=== PATIENT | female | born 1985 | race African-American/Black ===

== ENCOUNTER → 2025-08-04 16:34 | Outpatient (CLI) | payer OTHER, SELFPAY ==
[2025-08-04 17:27] LABS: Appearance Urine UA CLEAR; Bilirubin Urine UA NEGATIVE (NEGATIVE); Color Urine UA YELLOW; Glucose Urine UA NEGATIVE (Negative); Ketones Urine UA TRACE (NEGATIVE); Leukocyte Esterase Urine UA NEGATIVE (NEGATIVE); Nitrite Urine UA NEGATIVE (Negative); Occult Blood Urine UA 2+ (Negative); Protein Urine UA NEGATIVE (Negative); Specific Gravity Urine UA 1.025 (1.000-1.035); Urobilinogen Urine UA 0.2 E.U./dL (0.2)
[2025-08-04 17:28] LABS: pH Urine UA 6.0 (4.5-8.0)
[2025-08-04 17:34] LABS: Culture Indicated Urine Cult Not Indicated
== END ==
PROVIDERS: Visit Provider Obstetrics & Gynecology Gynecology
DX: N81.6 Rectocele (principal); N81.11 Cystocele, midline; N39.3 Stress incontinence (female) (male)
CPT/HCPCS: 81001